=== PATIENT | male | born 1950 ===

== ENCOUNTER 2018-04-07 00:38 | Inpatient (IN) | payer MEDICARE, SELFPAY ==
[2018-04-07] MEDS: Sodium Chloride 0.9% 1,000 ML IV SCH ×4 (02:30→18:24)
[2018-04-07] MEDS ORDERED: Ondansetron HCl/PF 4 MG/2 ML Vial IVP PRN (02:44)
[2018-04-07 02:53] VITALS: BMI 27.2
[2018-04-07] MEDS: Labetalol 100 MG/20 ML MDV SLOW IVP PRN (09:04)
[2018-04-07] MEDS ORDERED: Ondansetron ODT 4 MG TAB PO PRN (09:54)
[2018-04-07] MEDS ORDERED: Senokot 8.6 MG TAB PO PRN (09:54)
[2018-04-07] MEDS ORDERED: Mag-Al 1200 mg/1200 mg/30 ML UDCUP PO PRN (09:54)
[2018-04-07] MEDS ORDERED: Calcium Carbonate 500 MG ChewTAB PO PRN (09:54)
[2018-04-07] MEDS ORDERED: Milk Of Magnesia 30 ML UDCUP PO PRN (09:54)
[2018-04-07] MEDS ORDERED: Atenolol 25 MG TAB PO PRN (09:58)
[2018-04-07 10:14] LABS: #Lymphocytes 1.1 thou/uL (1.20-3.40); #Neutrophils 7.1 thou/uL (1.40-6.50); %Basophils 0.1 % (0.0-1.0); %Eosinophils 0.3 % (0.0-10.0); %Lymphocytes 12.3 % (21.0-51.0); %Monocytes 10.6 % (0.0-10.0); %Neutrophils 76.7 % (42.0-75.0); Hemoglobin 14.5 g/dL (14.0-18.0); Mean Corpuscular HGB CONC 33.3 g/dL (32.0-36.0); Mean Corpuscular Hemoglobin 29.9 pg (27.0-31.0); Mean Corpuscular Volume 89.9 fL (78.0-98.0); Mean Platelet Volume 8.2 fL (7.4-10.4); Platelet Count 186 thou/uL (130-400); RBC Distribution Width 11.3 % (11.5-14.5); Red Blood Cell (RBC) Count 4.85 mill/uL (4.70-6.10); White Blood Cell (WBC) Count 9.2 thou/uL (4.8-10.8)
[2018-04-07] MEDS ORDERED: Pantoprazole 40 MG VIAL IVP SCH (10:15)
[2018-04-07] MEDS ORDERED: Atenolol 25 MG TAB PO SCH ×2 (10:15)
[2018-04-07 10:37] LABS: ALT (SGPT) 169 U/L (8-55); AST (SGOT) 145 U/L (5-34); Albumin 3.8 g/dL (3.4-4.8); Alkaline Phosphatase 65 U/L (40-150); Anion Gap 10 mmol/L (10-20); BUN (Urea Nitrogen) 11 mg/dL (8.4-25.7); Bilirubin, Total 2.1 mg/dL (0.2-1.2); Calc. Creatinine Clearance 130 mL/min (70-130); Calcium 8.5 mg/dL (7.8-10.44); Carbon Dioxide 22 mmol/L (23-31); Chloride 109 mmol/L (98-107); Estimated GFR-MDRD Greater than 90; Globulin 2.7 g/dL (2.4-3.5); Glucose 154 mg/dL (80-115); Magnesium 2.5 mg/dL (1.6-2.6); Phosphorus 2.2 mg/dL (2.3-4.7); Potassium 4.2 mmol/L (3.5-5.1); Protein, Total 6.5 g/dL (5.8-8.1); Sodium 137 mmol/L (136-145)
[2018-04-07 10:50] LABS: Lipase 3444 U/L (8-78)
[2018-04-07 10:55] LABS: Hemoglobin A1c 6.8 % (4.0-6.0)
[2018-04-07 10:57] LABS: Lactic Acid 1.4 mmol/L (0.5-2.2)
[2018-04-07] MEDS ORDERED: Potassium Phosphate 9 MMOL in Sodium Chloride 0.9% 100 ML IVPB SCH (11:00)
[2018-04-07] MEDS: MEROPENEM 1 GM/50 ML 1 GM in Premix Bag 1 BAG IVPB SCH ×2 (11:10→18:16)
--- NOTE | 2018-04-07 13:17 | CON ---
DATE OF CONSULTATION: 04/07/2018 REQUESTING PHYSICIAN: Dr. Silas May. HISTORY OF PRESENT ILLNESS: This is a 67-year-old man, who was in the usual state of health up until approximately 1400 hours yesterday when he developed insidious onset severe epigastric abdominal pain. Pain was sharp rated at "20/10." Pain did not radiate. The pain was associated with multiple episodes of nausea, but no emesis. This pain was preceded by lunch consisting of biscuits. The patient denies any fevers or chills. He had diarrhea this morning. The patient was seen in the local Emergency Department. Workup at that time was consistent with intraluminal gallstones as well as elevated LFTs and lipase. The patient was transferred to [facility] for further care. At the time of my evaluation, the patient reports 4/10 abdominal pain having received intravenous analgesics this morning. PAST MEDICAL HISTORY: Pertinent for prostatic carcinoma, thyroid carcinoma, essential hypertension, and gastroesophageal reflux disease. SURGICAL HISTORY: Pertinent for cervical spine fusion 4 months ago, EGD with esophageal dilatation 1 month ago, TURP 2008 and Thyroidectomy in 2003 SOCIAL HISTORY: The patient is and lives at home with his . He is retired over the last 5 years ago. He has been very busy of late helping his son who is building a house. He admits to occasional intake of ethanol in very moderate amounts. He denies any cigarette smoking or illicit drug abuse. FAMILY HISTORY: Remarkable for father with adult onset diabetes mellitus, father also had heart disease in his 80s. The multiple extended family members with various types of cancer. PREHOSPITAL MEDICATIONS: Includes atenolol 25 mg p.o. daily and levothyroxine 150 mcg p.o. daily 6 days a week. ALLERGIES: NONSTEROIDAL ANTI-INFLAMMATORY AGENTS as well as AMBIEN. REVIEW OF SYSTEMS: Ten-point review of system is essentially unremarkable except as stated in the past medical history and chief complaint. PHYSICAL EXAMINATION: GENERAL: This reveals a 67-year-old normally developed man, who is otherwise coherent and interactive and appears stated age. The patient is alert and oriented x3, appears to be in no significant acute distress at the time of my evaluation. VITAL SIGNS: This morning includes blood pressure 164/90, respiratory rate is 14, heart rate 79, temperature is 98.7 degrees Fahrenheit, and oxygen saturation 97% on room air. HEENT: Reveals normocephalic and atraumatic. His pupils are equal, round, reactive to light and accommodation. Extraocular muscles are intact bilaterally. No sclerae icterus is present. Oral mucosa is pink and moist. No lesions are noted. NECK: Supple. No palpable lymphadenopathy or thyromegaly present. HEART: Reveals regular rate and rhythm, no murmurs or gallops auscultated. LUNGS: Clear to auscultation bilaterally. Breathing regular and unlabored. ABDOMEN: Soft with epigastric to right upper quadrant abdominal tenderness. Liver and spleen otherwise nonpalpable below costal margins. EXTREMITIES: Reveals 2+ radial and pedal pulses bilaterally. No ankle edema is present. NEUROLOGIC: Reveals no focal deficits present. IMAGING DATA: I have reviewed a report of the CT scan of the abdomen and pelvis from [facility] in [place], which was essentially unremarkable for any acute intraabdominal pathology. Abdominal ultrasound, however, revealed multiple intraluminal gallstones, gallbladder wall is thickened at 6 mm. There is also small pericholecystic fluid noted. Common bile duct is normal in diameter for this patient's age at 6 mm. LABORATORY STUDIES: Today includes a CBC with 9200 white blood cells, hemoglobin 14.5, hematocrit is 43.6, platelet count is 186,000. Metabolic profile today includes sodium 137, potassium is 4.2, chloride is 109, bicarbonate 22, BUN 11, creatinine 0.76, glucose is 154, phosphorus is 2.2, magnesium 2.5. Total bilirubin is 2.1. AST and ALT both elevated at 145 and 169 respectively. Alkaline phosphatase is normal at 65. Serum amylase is 1980. Serum lipase is 3444. IMPRESSION: 1. Acute cholecystitis with cholelithiasis. 2. Acute gallstone pancreatitis. RECOMMENDATIONS: 1. Gastrointestinal consultation and consideration for ERCP and hopefully common bile ductal stone extraction. 2. Laparoscopic cholecystectomy once pancreatitis is resolved. 3. Continue with broad spectrum antibiotic therapy, bowel rest and IV hydration. Above findings and recommendation have been discussed with the patient, his and adult son at bedside. They all indicated understanding of the information as provided. I answered all their questions. Thank you again, Dr. May for allowing me the opportunity to participate in the care of this patient. BEN
[2018-04-07] MEDS: Acetaminophen 325 MG TAB PO PRN ×2 (14:17→20:32)
--- NOTE | 2018-04-07 15:28 | HP ---
DATE OF ADMISSION: 04/07/2018 PRIMARY CARE PHYSICIAN: Out of town. CHIEF COMPLAINT: Abdominal discomfort. HISTORY OF PRESENT ILLNESS: The patient is a 67-year-old male who presented to [facility] with abdominal discomfort. Abdominal discomfort started yesterday around 2:00 p.m. after eating barbecue for lunch. The pain was sudden onset, severe epigastric without any radiation. He was diaphoretic. The pain was 10/10. He felt nauseous; however, denies any vomiting. He had some diarrhea this morning. No fever, chills, hematemesis, melena or hematochezia reported. He denies any weight loss or GI surgeries in the past. PAST MEDICAL HISTORY: 1. History of prostate cancer. 2. Thyroid cancer. 3. Hypertension. 4. Gastroesophageal reflux disease. 5. Hypothyroidism. 6. Paroxysmal supraventricular tachycardia. PAST SURGICAL HISTORY: 1. TURP in 2008. 2. Thyroidectomy in 2003. ALLERGIES: The patient is allergic to NSAIDs. CURRENT HOME MEDICATIONS: 1. Atenolol 25 mg daily. 2. Levothyroxine 150 mcg daily. SOCIAL HISTORY: The patient denies any current use of smoking or drug use. He drinks wine socially. Makes his own decisions with the help of his family. He is FULL [employer]. FAMILY HISTORY: Positive for diabetes and heart disease. Mother with brain cancer. REVIEW OF SYSTEMS: The following complete review of systems was negative, unless otherwise mentioned in the HPI or below: Constitutional: Weight loss or gain, ability to conduct usual activities. Skin: Rash, itching. Eyes: Double vision, pain. ENT/Mouth: Nose bleeding, neck stiffness, pain, tenderness. Cardiovascular: Palpitations, dyspnea on exertion, orthopnea. Respiratory: Shortness of breath, wheezing, cough, hemoptysis, fever or night sweats. Gastrointestinal: Poor appetite, abdominal pain, heartburn, nausea, vomiting, constipation, or diarrhea. Genitourinary: Urgency, frequency, dysuria, nocturia. Musculoskeletal: Pain, swelling. Neurologic/Psychiatric: Anxiety, depression. Allergy/Immunologic: Skin rash, bleeding tendency. PHYSICAL EXAMINATION: VITAL SIGNS: The vital signs at ER arrival, temperature 98.2, respiration of 16 , pulse rate of 82 with blood pressure of 200/114. GENERAL: A 67-year-old male in mild distress due to abdominal pain. HEENT: Head atraumatic, normocephalic. Sclerae are anicteric. Moist mucous membrane. No oral lesion. NECK: Supple, no JVD, no carotid bruit. LUNGS: Clear to auscultation bilaterally. HEART: S1, S2 present. Regular rate and rhythm. No murmur, rubs, or gallops appreciated. ABDOMEN: Soft, diffusely tender mainly in the epigastric region. No rebound or guarding. No costovertebral angle tenderness. EXTREMITIES: No edema or calf tenderness. NEUROLOGIC: Grossly nonfocal. Moves all four extremities. PSYCHIATRY: Alert, awake, oriented x3. SKIN: Warm and dry. LYMPH NODES: No palpable lymph nodes in the neck. PERIPHERAL VASCULAR: Radial pulses palpable bilaterally. MUSCULOSKELETAL: No joint swelling or tenderness. LABORATORY FINDINGS: Workup at [facility] was consistent with acute cholecystitis and acute gallstone pancreatitis. CBC showed WBC 11.8 with hemoglobin 16.4, hematocrit 48.6, platelet 260. Chemistries showed sodium 138, potassium 3.9, chloride 103, bicarbonate 24, BUN 19, creatinine 1.08, glucose 210, lactic acid 3.1. CRP 3.1. Ultrasound of the abdomen showed cholelithiasis with findings consistent with acute cholecystitis. CT scan of the abdomen and pelvis was negative. IMPRESSION: 1. Acute gallstone pancreatitis. His lipase today is 3444 with amylase of 1980. 2. Acute cholecystitis. 3. Cholelithiasis with choledocholithiasis. 4. Abnormal liver function tests secondary to #1. 5. Dehydration with lactic acidosis. 6. Hypertension with hypertensive urgency on ER arrival. 7. Gastroesophageal reflux disease. 8. Hypothyroidism. 9. History of paroxysmal supraventricular tachycardia. 10. Hyperglycemia, rule out diabetes mellitus type 2. 11. Hypophosphatemia with phosphorus of 2.2. PLAN: The patient will be monitored on the medical floor. We will continue aggressive IV fluids. We will add meropenem. PPIs. We will replace phosphorus. Consult GI and General Surgery. Resume atenolol. We will consult walking program. We will repeat labs in a.m. Plan of care was discussed with the patient in detail. He stated understanding. The patient will be kept n.p.o. except for medication with sips of water. MTDD
--- NOTE | 2018-04-07 18:41 | CON ---
DATE OF CONSULTATION: 04/07/2018 HISTORY OF PRESENT ILLNESS: The patient is a 67-year-old male, who was in his normal state of health until yesterday when he developed severe right upper quadrant and epigastric pain. This w as associated with nausea without vomiting. He has had a similar episode of pain in the past and was told that it was possibly reflux. He denies any weight loss, any change in bowel function. PAST MEDICAL HISTORY: Significant for prostate cancer, status post radiation; thyroid cancer, status post iodine treatment; hypertension. PAST SURGICAL HISTORY: Includes cervical spine fusion, EGD with dilatation. MEDICATIONS: Include levothyroxine 150 mcg p.o. q. day, atenolol 25 mg p.o. q. day. SOCIAL HISTORY: Does not smoke or drink. ALLERGIES: Include IBUPROFEN, NSAIDS and AMBIEN. FAMILY HISTORY: Negative for GI or liver disease. REVIEW OF SYSTEMS: Ten systems were reviewed and were negative except for above. PHYSICAL EXAMINATION: GENERAL: Shows a well-developed, well-nourished white male, in no acute distress. VITAL SIGNS: Temperature is 98.0, pulse 75, respiratory rate 14, blood pressure 160/90. HEENT: Unremarkable. NECK: Supple. CHEST: Clear. CARDIOVASCULAR: Regular rate and rhythm. ABDOMEN: Soft, nontender, without organomegaly or masses. RECTAL: Deferred. EXTREMITIES: Normal. NEUROLOGIC: Nonfocal. LABORATORY DATA: Shows white blood cell count of 9.2, hemoglobin 14.5, hematocrit 43.6. Chemistries show a CO2 of 22, glucose 154, phosphorus 2.2, bilirubin 2.1, AST 145, ALT 169. Amylase is 1980. L ipase of 3444. CT done at [facility] showed gallstones and CBD slightly dilated that is also th e findings of the ultrasound. ASSESSMENT: 1. Gallstone pancreatitis. 2. Elevated liver function tests consistent with possible choledocholithiasis. RECOMMENDATIONS: 1. ERCP. 2. Continue antibiotics. 3. General surgical consultation for consideration of cholecystectomy.
[2018-04-07] MEDS: Pantoprazole 40 MG VIAL IVP SCH (20:28)
[2018-04-08] MEDS: Acetaminophen 325 MG TAB PO PRN ×3 (00:30→13:30)
[2018-04-08] MEDS: Sodium Chloride 0.9% 1,000 ML IV SCH ×5 (00:31→19:54)
[2018-04-08] MEDS: MEROPENEM 1 GM/50 ML 1 GM in Premix Bag 1 BAG IVPB SCH ×3 (03:40→19:51)
[2018-04-08] MEDS: Levothyroxine 150 MCG TAB PO SCH (05:28)
[2018-04-08 05:33] LABS: #Eosinphils 0.1 thou/uL (0.0-0.7); #Lymphocytes 1.4 thou/uL (1.20-3.40); #Monocytes 0.6 thou/uL (0.11-0.59); #Neutrophils 4.3 thou/uL (1.40-6.50); %Basophils 0.2 % (0.0-1.0); %Eosinophils 1.4 % (0.0-10.0); %Lymphocytes 21.1 % (21.0-51.0); %Monocytes 9.9 % (0.0-10.0); %Neutrophils 67.4 % (42.0-75.0); Hemoglobin 12.9 g/dL (14.0-18.0); Mean Corpuscular HGB CONC 32.5 g/dL (32.0-36.0); Mean Corpuscular Hemoglobin 29.4 pg (27.0-31.0); Mean Corpuscular Volume 90.3 fL (78.0-98.0); Mean Platelet Volume 8.7 fL (7.4-10.4); Platelet Count 165 thou/uL (130-400); RBC Distribution Width 11.3 % (11.5-14.5); Red Blood Cell (RBC) Count 4.38 mill/uL (4.70-6.10); White Blood Cell (WBC) Count 6.4 thou/uL (4.8-10.8)
[2018-04-08 06:12] LABS: Lipase 1141 U/L (8-78)
[2018-04-08 06:54] LABS: ALT (SGPT) 124 U/L (8-55); AST (SGOT) 62 U/L (5-34); Albumin 3.4 g/dL (3.4-4.8); Alkaline Phosphatase 58 U/L (40-150); Anion Gap 10 mmol/L (10-20); BUN (Urea Nitrogen) 15 mg/dL (8.4-25.7); Bilirubin, Total 1.6 mg/dL (0.2-1.2); Calc. Creatinine Clearance 139 mL/min (70-130); Calcium 8.3 mg/dL (7.8-10.44); Carbon Dioxide 23 mmol/L (23-31); Chloride 110 mmol/L (98-107); Estimated GFR-MDRD Greater than 90; Globulin 2.4 g/dL (2.4-3.5); Glucose 91 mg/dL (80-115); Magnesium 2.4 mg/dL (1.6-2.6); Phosphorus 2.9 mg/dL (2.3-4.7); Potassium 3.9 mmol/L (3.5-5.1); Protein, Total 5.8 g/dL (5.8-8.1); Sodium 139 mmol/L (136-145)
[2018-04-08] MEDS ORDERED: Iothalamate Meglumine 60% 50 ML VIAL FS ONE (07:21)
[2018-04-08] MEDS ORDERED: Indomethacin 50 MG SUPP ONE (07:23)
[2018-04-08] MEDS: Atenolol 25 MG TAB PO SCH (07:31)
[2018-04-08] MEDS ORDERED: Fentanyl 100 MCG/2 ML VIAL ONE (07:32)
[2018-04-08] MEDS ORDERED: Ondansetron HCl/PF 4 MG/2 ML Vial IVP PRN (09:28)
[2018-04-08] MEDS ORDERED: Meperidine HCl/PF 25 MG/ML VIAL SLOW IVP PRN (09:28)
[2018-04-08] MEDS ORDERED: Promethazine HCl 25 MG/ML VIAL IM PRN (09:28)
[2018-04-08] MEDS ORDERED: Promethazine HCl 25 MG/ML VIAL SLOW IVP PRN (09:28)
--- NOTE | 2018-04-08 10:03 | OP ---
PREOPERATIVE DIAGNOSIS: Gallstone pancreatitis. PROCEDURE: After informed consent was obtained, the patient placed in the left lateral decubitus pos ition. Anesthesia was administered per the Anesthesia Department. Side-viewing endoscope was insert ed into esophagus under direct visualization with ease and passed to the second portion of the duoden um with ease. Second portion of the duodenum, duodenal bulb were normal. No mucosal abnormalities w ere noted. Tapered-tip cannula was inserted in the pancreatic duct and partial pancreatogram was nor mal. The cannula was then inserted into the common bile duct. Cholangiogram revealed no obvious alli ling defects. A sphincterotomy was performed and the duct was swept revealing some small stones and sludge. ASSESSMENT: Choledocholithiasis. RECOMMENDATIONS: 1. Proceed with laparoscopic cholecystectomy. 2. Recheck LFTs.
[2018-04-08] MEDS: Pantoprazole 40 MG VIAL IVP SCH ×2 (11:27→21:50)
[2018-04-08] MEDS ORDERED: ePHEDrine/0.9% NaCl/PF SYRINGE 50 mg/10 ml ONE (15:21)
[2018-04-08] MEDS ORDERED: Dexamethasone 20 MG/5 ML VIAL ONE (15:21)
[2018-04-08] MEDS ORDERED: Lidocaine 1% PF 5 ML VIAL ONE (15:21)
[2018-04-08] MEDS ORDERED: Ondansetron HCl/PF 4 MG/2 ML Vial ONE (15:21)
[2018-04-08] MEDS ORDERED: PROPOFOL 200 MG/20 ML VIAL ONE (15:21)
[2018-04-08] MEDS ORDERED: Glycopyrrolate 0.2 MG/ML 5 ML SYRINGE ONE (15:21)
--- NOTE | 2018-04-08 23:40 | PDOC.PN ---
- Subjective Encounter Start Date: 04/08/18 Encounter Start Time: 18:00 Patient seen and examined for Acute gallstone pancreatitis. Feels better. Abd pain improving. s/p ERCP. No other complaints. No overnight events - Objective Resuscitation Status: Resuscitation Status FULL:Full Resuscitation MAR Reviewed: Yes Vital Signs & Weight: Vital Signs (12 hours) Temp Pulse Resp BP Pulse Ox 04/08/18 19:55 97.8 F 78 16 133/74 98 04/08/18 15:50 98.2 F 69 18 152/86 H 94 L Weight Weight 212 lb 1.6 oz I&O: 04/07/18 04/08/18 04/09/18 06:59 06:59 06:59 Intake Total 0 2669 2200 Output Total 950 Balance 0 1719 2200 Result Diagrams: 04/08/18 04:55 04/08/18 04:55 Additional Labs: Accuchecks 04/08/18 04/08/18 04/08/18 18:13 11:23 05:38 POC Glucose 137 H 108 86 Phys Exam - Physical Examination Constitutional: NAD Respiratory: no wheezing, no rhonchi Cardiovascular: RRR, no rub Gastrointestinal: soft, no distention, positive bowel sounds mild epig tend + Musculoskeletal: no edema Neurological: moves all 4 limbs Dx/Plan - Plan DVT proph w/SCDs IMPRESSION: 1. Acute gallstone pancreatitis. 2. Acute cholecystitis/Cholelithiasis with choledocholithiasis. 3. Hypertension with hypertensive urgency on ER arrival. 4. Abnormal liver function tests secondary to #1. 5. Dehydration with lactic acidosis. 6. DM2 - new diagnosis 7. Hypothyroidism/GERD/History of paroxysmal supraventricular tachycardia/ Hypophosphatemia PLAN: Lap linda in AM Cont Abtx Recheck LFTs and Lipase in AM Cont other meds as below Laboratory Tests 04/08/18 04:55 Total Bilirubin 1.6 H AST 62 H ALT 124 H Lipase 1141 H Review of Systems - Review of Systems Respiratory: negative: Cough, Dry, Shortness of Breath, Hemoptysis, SOB with Excertion, Pleuritic Pain, Sputum, Wheezing Cardiovascular: negative: chest pain, palpitations, orthopnea, paroxysmal nocturnal dyspnea, edema, light headedness, other - Medications/Allergies Allergies/Adverse Reactions: Allergies Allergy/AdvReac Type Severity Reaction Status Date / Time ibuprofen Allergy Verified 04/07/18 02:41 NSAIDS (Non-Steroidal Allergy Verified 04/07/18 02:41 Anti-Inflamma zolpidem [From Ambien] Allergy Verified 04/07/18 02:41 Medications: Current Medications Acetaminophen (Tylenol) 650 mg PO Q4H PRN PRN Reason: Headache/Fever or Pain Last Admin: 04/08/18 13:30 Dose: 650 mg Al Hydroxide/Mg Hydroxide (Maalox) 30 ml PO Q6H PRN PRN Reason: Heartburn or Indigestion Atenolol (Tenormin) 25 mg PO DAILY [facility] Last Admin: 04/08/18 07:31 Dose: 25 mg Calcium Carbonate (Tums) 1,000 mg PO Q4H PRN PRN Reason: Heartburn or Indigestion Meropenem 1 gm/ Device 50 mls @ 100 mls/hr IVPB 0300,1100,1900 [facility] Last Admin: 04/08/18 19:51 Dose: 50 mls Sodium Chloride (Normal Saline 0.9%) 1,000 mls @ 125 mls/hr IV .Q8H [facility] Last Admin: 04/08/18 19:54 Dose: 1,000 mls Labetalol HCl (Normodyne) 10 mg SLOW IVP PRN PRN PRN Reason: FOR SBP > 180 OR DBP > 100 Last Admin: 04/07/18 09:04 Dose: 10 mg Levothyroxine Sodium (Synthroid) 150 mcg PO 0600 [facility] Last Admin: 04/08/18 05:28 Dose: 150 mcg Magnesium Hydroxide (Milk Of Magnesium) 30 ml PO DAILYPRN PRN PRN Reason: Constipation Morphine Sulfate (Morphine) 2 mg SLOW IVP Q4H PRN PRN Reason: Pain Last Admin: 04/08/18 15:33 Dose: 2 mg Morphine Sulfate (Morphine) 4 mg SLOW IVP Q4H PRN PRN Reason: Pain Stop: 04/09/18 10:02 Ondansetron HCl (Zofran) 4 mg IVP Q4H PRN PRN Reason: Nausea/Vomiting Last Admin: 04/07/18 03:34 Dose: 4 mg Ondansetron HCl (Zofran Odt) 4 mg PO Q6H PRN PRN Reason: Nausea/Vomiting Pantoprazole Sodium (Protonix) 40 mg IVP Q12HR [facility] Last Admin: 04/08/18 21:50 Dose: 40 mg Saccharomyces Boulardii (Florastor) 250 mg PO DAILY [facility] Senna (Senokot) 2 tab PO HSPRN PRN PRN Reason: Constipation Sodium Chloride (Flush - Normal Saline) 10 ml IVF Q12HR [facility] Last Admin: 04/08/18 22:29 Dose: 10 ml Sodium Chloride (Flush - Normal Saline) 10 ml IVF PRN PRN PRN Reason: Saline Flush
[2018-04-09] MEDS: MEROPENEM 1 GM/50 ML 1 GM in Premix Bag 1 BAG IVPB SCH ×3 (03:39→18:33)
[2018-04-09] MEDS: Sodium Chloride 0.9% 1,000 ML IV SCH ×3 (03:52→18:33)
[2018-04-09 06:06] LABS: ALT (SGPT) 85 U/L (8-55); AST (SGOT) 27 U/L (5-34); Albumin 3.5 g/dL (3.4-4.8); Alkaline Phosphatase 56 U/L (40-150); Bilirubin, Direct 0.3 mg/dL (0.1-0.3); Bilirubin, Total 0.8 mg/dL (0.2-1.2); Lipase 58 U/L (8-78); Protein, Total 6.1 g/dL (5.8-8.1)
[2018-04-09] MEDS: Atenolol 25 MG TAB PO SCH (06:19)
[2018-04-09] MEDS: Levothyroxine 150 MCG TAB PO SCH (06:19)
[2018-04-09] MEDS: Pantoprazole 40 MG VIAL IVP SCH (08:44)
[2018-04-09] MEDS: Saccharomyces boulardii 250 MG CAP PO SCH (08:44)
[2018-04-09] MEDS ORDERED: Fentanyl 250 MCG/5 ML VIAL ONE (11:21)
[2018-04-09] MEDS ORDERED: Bupivacaine/Epinephrine 0.25% 30 ML VIAL ONE (11:37)
[2018-04-09] MEDS ORDERED: Albuterol Sulfate HFA (OR ONLY) ONE (13:06)
[2018-04-09] MEDS ORDERED: traMADol HCl 50 MG TAB PO PRN ×2 (13:38)
[2018-04-09] MEDS ORDERED: Morphine Sulfate 2 MG/ML SYRINGE SLOW IVP PRN (13:50)
[2018-04-09] MEDS ORDERED: Ondansetron HCl/PF 4 MG/2 ML Vial IVP PRN (13:50)
[2018-04-09] MEDS ORDERED: Meperidine HCl/PF 25 MG/ML VIAL SLOW IVP PRN (13:50)
[2018-04-09] MEDS ORDERED: Promethazine HCl 25 MG/ML VIAL IM PRN (13:50)
[2018-04-09] MEDS ORDERED: HYDROmorphone 2 MG/ML VIAL SLOW IVP PRN (13:50)
[2018-04-09] MEDS ORDERED: Promethazine HCl 25 MG/ML VIAL SLOW IVP PRN (13:50)
[2018-04-09] MEDS ORDERED: Fentanyl 100 MCG/2 ML VIAL ONE (14:09)
[2018-04-09] MEDS: Labetalol 100 MG/20 ML MDV SLOW IVP PRN (14:45)
--- NOTE | 2018-04-09 15:10 | OP ---
DATE OF OPERATION: 04/09/2018 PREOPERATIVE DIAGNOSES: 1. Acute cholecystitis with cholelithiasis. 2. Choledocholithiasis status post ERCP and sphincterotomy. PROCEDURES PERFORMED: Laparoscopic cholecystectomy. SURGEON: Kt Rowe D.O. ANESTHESIA: General endotracheal. ESTIMATED BLOOD LOSS: 20 mL FLUIDS GIVEN: 800 mL crystalloids. SPONGE AND INSTRUMENT COUNT: Certified as correct x2. COMPLICATIONS: None apparent at the time of operation. INDICATIONS FOR PROCEDURE: This is a 67-year-old man presented with recurrent epigastric t o right upper quadrant abdominal pain. Clinical radiographic examination was consistent with acute c holecystitis with cholelithiasis and choledocholithiasis. The patient underwent an uneventful ERCP y with sphincterotomy. He was brought to the operating room today for laparoscopic cholecyste ctomy. Findings are consistent with gallbladder in the usual anatomic location partially encased by omental adhesions. DESCRIPTION OF PROCEDURE: Informed consent obtained from the patient, who was brought to the operati ng room and placed in supine position. Following general anesthesia, abdomen is sterilely prepped an d draped in usual fashion. Skin below the umbilicus was infiltrated with 0.25% Marcaine with epineph rine and a small curvilinear infraumbilical incision is made using an 11 scalpel. Umbilical stalk gr asped with Addy's and elevated. Veress needle was inserted through the incision and placed in the peritoneal cavity through which the abdomen was insufflated with 3 liters of CO2 gas. Intraabdominal pressure was 0 mmHg. Following abdominal insufflation, Veress needle was removed and a 5 mm trocar introduced using the Visiport under laparoscopy. Laparoscopy confirmed proper placement of the port, no injuries to underlying structures. Additional laparoscopy reveals gallbladder in the usual anato [place] location partially encased by omental adhesions. Under direct laparoscopy, a 12 mm epigastric an d two 5 mm right lateral subcostal ports were placed after the overlying skin were infiltrated with 0 .25% Marcaine with epinephrine and appropriate incisions made. The patient was placed in a reverse T rendelenburg position, rotated to his left. I introduced the [place] dissector with cautery to take down omental adhesions. A Prestige grasper was introduced through the right lateral subcostal port grasping the fundus of the gallbladder, which was elevated cephalad. A second Prestige grasper intro duced through the right medial subcostal port grasping the Cruz's pouch, which was retracted later ally. Cystic duct was carefully dissected free from surrounding structures at the triangle of Calot. The duct is divided between clips applying two clips proximally and one clip at the junction of the c ystic duct and gallbladder. The cystic artery dissected free from surrounding structures and divided between clips in a similar fashion. The gallbladder was removed from the liver bed using cautery wi th good hemostasis. Gallbladder is delivered of the abdominal cavity using an EndoCatch. Operative site was inspected for good hemostasis. There was minor oozing of venous blood and lateral aspect of the gallbladder fossa. Attempted to cauterize this with minimum success then placed 1 x 2 inch piec e of fibula and achieved immediate hemostasis. Finding no other pathology, laparoscopy was terminate d. Fascia of the epigastric port was closed using 0 Vicryl suture and Endo closure device under lapa roscopy. Abdomen was desufflated. All ports and instruments removed and accounted for. Skin incisi ons were closed using 4-0 Monocryl suture in subcuticular fashion. Dermabond was applied over incisi onal closure. The patient tolerated the operation without any apparent complication and was returned to recovery room in satisfactory condition.
[2018-04-09] MEDS ORDERED: Dexamethasone 20 MG/5 ML VIAL ONE (15:36)
[2018-04-09] MEDS ORDERED: PROPOFOL 200 MG/20 ML VIAL ONE (15:36)
[2018-04-09] MEDS ORDERED: PROVENTIL INHALER 6.7 G (200 INHALATIONS) ONE (15:36)
[2018-04-09] MEDS ORDERED: Lidocaine 1% PF 5 ML VIAL ONE ×2 (15:36)
[2018-04-09] MEDS ORDERED: Esmolol 100 MG/10 ML VIAL ONE (15:36)
[2018-04-09] MEDS ORDERED: Glycopyrrolate 0.2 MG/ML 5 ML SYRINGE ONE (15:36)
[2018-04-09] MEDS ORDERED: Ondansetron HCl/PF 4 MG/2 ML Vial ONE (15:36)
[2018-04-09] MEDS: Acetaminophen 500 MG TAB PO SCH ×2 (17:06→23:31)
[2018-04-10] MEDS: MEROPENEM 1 GM/50 ML 1 GM in Premix Bag 1 BAG IVPB SCH (03:21)
[2018-04-10 05:43] LABS: #Lymphocytes 0.8 thou/uL (1.20-3.40); #Monocytes 0.6 thou/uL (0.11-0.59); %Basophils 0.1 % (0.0-1.0); %Eosinophils 0.1 % (0.0-10.0); %Lymphocytes 8.1 % (21.0-51.0); %Monocytes 6.3 % (0.0-10.0); %Neutrophils 85.4 % (42.0-75.0); Hemoglobin 12.5 g/dL (14.0-18.0); Mean Corpuscular HGB CONC 33.4 g/dL (32.0-36.0); Mean Platelet Volume 9.2 fL (7.4-10.4); Platelet Count 177 thou/uL (130-400); RBC Distribution Width 11.3 % (11.5-14.5); Red Blood Cell (RBC) Count 4.16 mill/uL (4.70-6.10); White Blood Cell (WBC) Count 9.3 thou/uL (4.8-10.8)
[2018-04-10 06:09] LABS: ALT (SGPT) 67 U/L (8-55); AST (SGOT) 22 U/L (5-34); Albumin 3.6 g/dL (3.4-4.8); Alkaline Phosphatase 53 U/L (40-150); Anion Gap 8 mmol/L (10-20); BUN (Urea Nitrogen) 19 mg/dL (8.4-25.7); Bilirubin, Total 0.6 mg/dL (0.2-1.2); Calc. Creatinine Clearance 127 mL/min (70-130); Calcium 8.4 mg/dL (7.8-10.44); Carbon Dioxide 26 mmol/L (23-31); Chloride 106 mmol/L (98-107); Estimated GFR-MDRD Greater than 90; Globulin 2.4 g/dL (2.4-3.5); Glucose 159 mg/dL (80-115); Magnesium 2.3 mg/dL (1.6-2.6); Phosphorus 2.6 mg/dL (2.3-4.7); Potassium 4.3 mmol/L (3.5-5.1); Sodium 136 mmol/L (136-145)
[2018-04-10] MEDS: Levothyroxine 150 MCG TAB PO SCH (06:29)
[2018-04-10] MEDS: Acetaminophen 500 MG TAB PO SCH (06:29)
[2018-04-10] MEDS: Atenolol 25 MG TAB PO SCH (08:11)
[2018-04-10] MEDS: Saccharomyces boulardii 250 MG CAP PO SCH (08:12)
[2018-04-10 11:44] VITALS: BP 145/78; TEMP 98
--- NOTE | 2018-04-11 17:44 | PDOC.PN ---
- Subjective Encounter Start Date: 04/09/18 Encounter Start Time: 20:00 Patient seen and examined on 04/09 for Gallstone pancreatitis. s/p Lap linda. Pain controlled. No new complaints. No overnight events - Objective Resuscitation Status: Resuscitation Status FULL:Full Resuscitation MAR Reviewed: Yes Vital Signs & Weight: Weight Weight 212 lb 1.6 oz I&O: 04/10/18 04/11/18 04/12/18 06:59 06:59 06:59 Intake Total 2330 500 Balance 2330 500 Result Diagrams: 04/10/18 04:30 04/10/18 04:30 Additional Labs: Laboratory Tests 04/09/18 05:15 ALT 85 H Lipase 58 Phys Exam - Physical Examination Constitutional: NAD Respiratory: no wheezing, no rhonchi Cardiovascular: RRR, no rub Gastrointestinal: soft, non-tender, positive bowel sounds Musculoskeletal: no edema Neurological: moves all 4 limbs Dx/Plan - Plan DVT proph w/SCDs IMPRESSION: 1. Acute gallstone pancreatitis. s/p Lap Linda and ERCP 2. Acute cholecystitis/Cholelithiasis with choledocholithiasis. 3. Hypertension with hypertensive urgency on ER arrival. 4. Abnormal liver function tests secondary to #1. 5. Dehydration with lactic acidosis. 6. DM2 - new diagnosis 7. Hypothyroidism/GERD/History of paroxysmal supraventricular tachycardia/ Hypophosphatemia PLAN: Abtx dced AM labs DC in AM if stable Cont other meds as below Review of Systems - Review of Systems Respiratory: negative: Cough, Dry, Shortness of Breath, Hemoptysis, SOB with Excertion, Pleuritic Pain, Sputum, Wheezing Cardiovascular: negative: chest pain, palpitations, orthopnea, paroxysmal nocturnal dyspnea, edema, light headedness, other - Medications/Allergies Allergies/Adverse Reactions: Allergies Allergy/AdvReac Type Severity Reaction Status Date / Time ibuprofen Allergy Verified 04/07/18 02:41 NSAIDS (Non-Steroidal Allergy Verified 04/07/18 02:41 Anti-Inflamma zolpidem [From Ambien] Allergy Verified 04/07/18 02:41
--- NOTE | 2018-04-11 17:49 | DIS ---
DATE OF DISCHARGE: 04/10/2018 DISCHARGE DISPOSITION: Home. FOLLOWUP: Follow up with primary care physician in one week. The patient has an out of town PCP. Teri chavez up with Dr. Kt Rowe in 2 weeks. The patient was seen on the day of discharge. Denies any new complaints, no chest pain, shortness of breath, palpitations. DISCHARGE MEDICATIONS: Atenolol 25 mg as needed, levothyroxine 150 mcg daily, tramadol as needed. BRIEF HOSPITAL COURSE: Patient is a 67-year-old male who presented to [facility] with abdominal discomfort. He was found to have acute gallstone pancreatitis with suspected acute cholecy stitis. He was transferred to this facility for insurance reasons. He underwent ERCP by Dr. Souleymane mcelroy followed by laparoscopic cholecystectomy next day by Dr. Rowe. He was placed on broad spectrum antibiotics which has been discontinued per General Surgery at discharge. He has been cleared by [facility] for discharge. FINAL DIAGNOSES: 1. Acute gallstone pancreatitis. 2. Acute cholecystitis. 3. Choledocholithiasis/cholelithiasis. 4. Hypertension with hypertensive urgency on ER arrival. 5. Abnormal liver function tests secondary to #1, improving. 6. Dehydration with lactic acidosis. 7. New diagnosis of diabetes mellitus type 2 with hemoglobin A1c of 6.8. The patient has a history of prediabetes. 8. Hypothyroidism. 9. Gastroesophageal reflux disease. 10. History of paroxysmal supraventricular tachycardia. 11. Hypophosphatemia, replaced. Plan of care was discussed with the patient in detail. He stated understanding.
== END 2018-04-10 11:45 | disposition home or self-care (01) | DRG 418 ==
LOC: SURG A 02:07
PROVIDERS: ADMIT Hospitalist; ATTEND Hospitalist
PROC: 0FC98ZZ Extirpation of Matter from Common Bile Duct, Via Natural or Artificial Opening Endoscopic (ICD-10-PCS; principal; 2018-04-08)
PROC: BF11YZZ Fluoroscopy of Biliary and Pancreatic Ducts using Other Contrast (ICD-10-PCS; 2018-04-08)
PROC: 0FT44ZZ Resection of Gallbladder, Percutaneous Endoscopic Approach (ICD-10-PCS; 2018-04-09)
DX: K85.10 Biliary acute pancreatitis without necrosis or infection (principal); K80.42 Calculus of bile duct with acute cholecystitis without obstruction; I47.1 Supraventricular tachycardia; E87.2 Acidosis; K21.9 Gastro-esophageal reflux disease without esophagitis; Z85.850 Personal history of malignant neoplasm of thyroid; Z85.46 Personal history of malignant neoplasm of prostate; E89.0 Postprocedural hypothyroidism; E86.0 Dehydration; E83.39 Other disorders of phosphorus metabolism; R73.9 Hyperglycemia, unspecified; I16.0 Hypertensive urgency; I11.9 Hypertensive heart disease without heart failure
CPT/HCPCS: 36415; 36416; 74330; 80053; 80076; 82150; 83036; 83605; 83690; 83735; 84100; 84478; 85025; 88304; A4216; C9113; J1100; J2001; J2185; J2270; J2405; J2704; J3010; J7050; Q9961